=== PATIENT | female | born 1985 | race Two or more races ===

== ENCOUNTER 2019-02-09 10:11 | Inpatient (IN) | payer OTHER ==
[~2019-02-09] VITALS: Ht 157.5 cm; Wt 3.6 kg
[2019-03-11] MEDS ORDERED: PRENATAL 19 TA1 EAC1 PO (06:09)
[2019-03-11] MEDS ORDERED: FE C PLUS TABL1 EACH PO (06:10)
[2019-03-12] MEDS ORDERED: [UNRECOGNIZED DRUG - OTHER] IM (07:37)
== END 2019-03-13 12:01 | disposition home or self-care (01) | DRG 788 ==
LOC: OB/GYN 02-28 12:15 → LDR 03-11 05:31 → SURG-SUITE 03-11 21:28
PROVIDERS: ADMIT Obstetrics & Gynecology
PROC: 3E0P7VZ Introduction of Hormone into Female Reproductive, Via Natural or Artificial Opening (ICD-10-PCS; 2019-03-11)
PROC: 3E033VJ Introduction of Other Hormone into Peripheral Vein, Percutaneous Approach (ICD-10-PCS; 2019-03-11)
PROC: 4A1HXCZ Monitoring of Products of Conception, Cardiac Rate, External Approach (ICD-10-PCS; 2019-03-11)
PROC: 10D00Z1 Extraction of Products of Conception, Low, Open Approach (ICD-10-PCS; principal; 2019-03-11 19:00)
DX: O82 Encounter for cesarean delivery without indication (principal); O62.1 Secondary uterine inertia; Z3A.41 41 weeks gestation of pregnancy; Z37.0 Single live birth

== ENCOUNTER 2019-03-07 07:29 | Outpatient (CLI) | payer OTHER | END 2019-03-07 13:42 | disposition home or self-care (01) | LOC: OBS/DEL 07:29 | DX: O48.0 Post-term pregnancy (principal); O76 Abnormality in fetal heart rate and rhythm complicating labor and delivery; Z34.83 Encounter for supervision of other normal pregnancy, third trimester ==

== ENCOUNTER → 2019-03-07 | Outpatient (CLI) | payer OTHER ==
[~2019-03-07] MED LIST: FE C PLUS TABL1 EACH PO; PRENATAL 19 TA1 EAC1 PO; [UNRECOGNIZED DRUG - OTHER] IM
== END | disposition home or self-care (01) ==
LOC: NST 06:30
DX: Z34.83 Encounter for supervision of other normal pregnancy, third trimester (principal)

== ENCOUNTER 2020-07-02 13:15 | Inpatient (IN) | payer OTHER ==
[~2020-07-02] VITALS: Ht 157.5 cm; Wt 4.1 kg
== END 2020-07-11 10:05 | disposition home or self-care (01) | DRG 785 ==
LOC: ADM 13:15 → OB/GYN 13:15 → EDSTATUS 13:15 → SURG-SUITE 07-09 05:35 → O/R 07-09 05:35 → OB/GYN 07-09 08:15 → SURG-SUITE 07-09 12:03 → OB/GYN 07-09 13:15 → SURG-SUITE 07-11 10:05
PROVIDERS: ADMIT Obstetrics & Gynecology; ATTEND Obstetrics & Gynecology
PROC: 0UL70ZZ Occlusion of Bilateral Fallopian Tubes, Open Approach (ICD-10-PCS; 2020-07-09)
PROC: 4A1HXCZ Monitoring of Products of Conception, Cardiac Rate, External Approach (ICD-10-PCS; 2020-07-09)
PROC: 10D00Z1 Extraction of Products of Conception, Low, Open Approach (ICD-10-PCS; principal; 2020-07-09 08:15)
DX: O82 Encounter for cesarean delivery without indication (principal); Z3A.39 39 weeks gestation of pregnancy; Z37.0 Single live birth; Z30.2 Encounter for sterilization